=== PATIENT | male | born 1980 | race American Indian/Alaskan Native ===

== ENCOUNTER 2019-01-09 12:45 | Emergency (ER) | payer SELFPAY ==
[2019-01-09 12:57] VITALS: BP 148/92
--- NOTE | 2019-01-09 12:59 | Emergency Department Report ---
Blank Doc - Documentation Documentation: 38-year-old male that presents with right elbow lac s/p fall with right should er, mid-back and elbow pain. Denies any head injuries or neck pain. This initial assessment/diagnostic orders/clinical plan/treatment(s) is/are subject to change based on patient's health status, clinical progression and re- assessment by fellow clinical providers in the ED. Further treatment and workup at subsequent clinical providers discretion. Patient/guardians urged not to elope from the ED as their condition may be serious if not clinically assessed and managed. Initial orders include: 1- Patient sent to [facility] for further evaluation and treatment 2- xrays 3- lac setup
--- NOTE | 2019-01-09 13:34 | XRay Report ---
RIGHT ELBOW 3 VIEWS INDICATION / CLINICAL INFORMATION: Fall with right elbow pain. COMPARISON: None available. FINDINGS: BONES / JOINT(S): No acute fracture or subluxation. There is a small bone island in the distal cristofer l epicondyle laterally. There is no evidence of joint effusion. SOFT TISSUES: No significant abnormality. ADDITIONAL FINDINGS: None. IMPRESSION: No acute abnormality. Signer Name: Christo Kahn MD Signed: 01/09/2019 1:30 PM Workstation Name: [email or web address]
--- NOTE | 2019-01-09 13:35 | XRay Report ---
3 views of the right shoulder INDICATION / CLINICAL INFORMATION: pain s/p fall. COMPARISON: None available. FINDINGS: BONES/JOINT(S): No acute fracture or subluxation. No significant degenerative changes. SOFT TISSUES: No significant abnormality. ADDITIONAL FINDINGS: None. Signer Name: Jerson Tello MD Signed: 01/09/2019 1:30 PM Workstation Name: [email or web address]
--- NOTE | 2019-01-09 13:35 | XRay Report ---
THORACIC SPINE 3 VIEWS INDICATION / CLINICAL INFORMATION: Fall with dorsal back pain. COMPARISON: None available. FINDINGS: BONES / JOINT(S): The vertebral body heights and disc spaces are well-maintained. The pedicles are in tact. There is no evidence of fracture or subluxation. SOFT TISSUES: No significant abnormality. ADDITIONAL FINDINGS: None. IMPRESSION: No acute abnormality. Signer Name: Christo Kahn MD Signed: 01/09/2019 1:31 PM Workstation Name: [id number]
--- NOTE | 2019-01-09 15:47 | Emergency Department Report ---
ED Fall HPI - General Chief Complaint: Fall Stated Complaint: CHEST PAIN/BACK PAIN Time Seen by Provider: 01/09/19 12:58 Source: patient Mode of arrival: Ambulatory - History of Present Illness Initial Comments: This is a 38-year-old -[place] male who presents to the emergency room with generalized body aches status post fall on yesterday. Patient states he fell down a flight of stairs at home yesterday. He reports initially felt dizzy which has now resolved. He is now complaining of right shoulder plain and right upper back pain. Patient reports his entire body feels sore and worse with movement. He denies loss of consciousness, chest pain, palpitations, shortness of breath, bruising, numbness or tingling, change in urinary or bowel pattern, weakness, or paresthesia. MD Complaint: fall Onset/Timin -: days(s) Fall From: down stairs (#) (10) When Fall Occurred: # days SOFTWARE LEAD (1) Fall Witnessed: yes, by family Place Fall Occurred: home Loss of Consciousness: none Prolonged Down Time?: no Symptoms Prior to Fall: none Location: back Location - Extremities: Right: Shoulder Severity: moderate Severity scale (0 -10): 6 Quality: aching Context: tripped/slipped Associated Symptoms: denies - Related Data Previous Rx's Medication Instructions Recorded Last Taken Type Naproxen [Naprosyn] 500 mg PO BID PRN #20 tablet 01/09/19 Unknown Rx methOCARBAMOL [Robaxin TAB] 500 mg PO Q6H PRN #15 tablet 01/09/19 Unknown Rx Allergies Allergy/AdvReac Type Severity Reaction Status Date / Time No Known Allergies Allergy Unverified 01/09/19 12:48 ED Review of Systems ROS: Stated complaint: CHEST PAIN/BACK PAIN Other details as noted in HPI Constitutional: denies: chills, fever Respiratory: denies: cough, shortness of breath, wheezing Cardiovascular: denies: chest pain, palpitations Gastrointestinal: denies: abdominal pain, nausea, diarrhea Musculoskeletal: back pain, arthralgia (right shoulder pain). denies: joint swelling Skin: denies: rash, lesions Neurological: denies: headache, weakness, paresthesias Psychiatric: denies: anxiety, depression ED Past Medical Hx - Past Medical History Previous Medical History?: No - Surgical History Past Surgical History?: No - Social History Smoking Status: Current Every Day Smoker Substance Use Type: None - Medications Home Medications: Home Medications Medication Instructions Recorded Confirmed Last Taken Type Naproxen [Naprosyn] 500 mg PO BID PRN #20 tablet 01/09/19 Unknown Rx methOCARBAMOL [Robaxin TAB] 500 mg PO Q6H PRN #15 tablet 01/09/19 Unknown Rx ED Physical Exam - General Limitations: No Limitations General appearance: alert, in no apparent distress - Neck Neck exam: Present: tenderness (bilateral trapezius, no erythema or swelling), full ROM. Absent: lymphadenopathy - Respiratory Respiratory exam: Present: normal lung sounds bilaterally. Absent: respiratory distress - Cardiovascular Cardiovascular Exam: Present: regular rate, normal rhythm. Absent: systolic murmur, diastolic murmur, rubs, gallop - GI/Abdominal GI/Abdominal exam: Present: soft, normal bowel sounds. Absent: distended, tenderness, guarding, rebound, rigid - Expanded Upper Extremity Exam Right Shoulder Exam: Present: full ROM (pain with FROM). Absent: tenderness, swelling, abrasion, laceration, ecchymosis, deformity, crepidus, dislocation, erythema, tenderness over AC joint Upper Arm exam: Present: normal inspection, full ROM Elbow exam: Present: full ROM, tenderness, abrasion (2 cm abrasion over olecranon, tenderness, no drainage or swelling). Absent: laceration, ecchymosis, deformity, crepidus, dislocation, erythema, effusion, pain w/ pronation/supination, tenderness over radial head Forearm Wrist exam: Present: normal inspection, full ROM Hand Wrist exam: Present: normal inspection, full ROM Neuro motor exam: Present: wrist extension intact, thumb opposition intact, thumb IP flexion intact, thumb adduction intact, fingers 2-5 abduction intact Vascular: Present: normal capillary refill, radial pulse - Back Exam Back exam: Present: full ROM (pain with FROM), paraspinal tenderness (bilateral thoracic paraspinal tenderness, negative SLT). Absent: muscle spasm, vertebral tenderness, rash noted - Neurological Exam Neurological exam: Present: alert, oriented X3, normal gait - Psychiatric Psychiatric exam: Present: normal affect, normal mood - Skin Skin exam: Present: warm, dry, intact, normal color. Absent: rash ED Course Vital Signs 01/09/19 12:56 Temperature 97.4 F L Pulse Rate 71 Respiratory 20 Rate Blood Pressure 148/92 O2 Sat by Pulse 100 Oximetry ED Medical Decision Making - Radiology Data Radiology results: report reviewed THORACIC SPINE 3 VIEWS INDICATION / CLINICAL INFORMATION: Fall with dorsal back pain. COMPARISON: None available. FINDINGS: BONES / JOINT(S): The vertebral body heights and disc spaces are well- maintained. The pedicles are intact. There is no evidence of fracture or subluxation. SOFT TISSUES: No significant abnormality. ADDITIONAL FINDINGS: None. IMPRESSION: No acute abnormality. 3 views of the right shoulder INDICATION / CLINICAL INFORMATION: pain s/p fall. COMPARISON: None available. FINDINGS: BONES/JOINT(S): No acute fracture or subluxation. No significant degenerative changes. SOFT TISSUES: No significant abnormality. ADDITIONAL FINDINGS: None. RIGHT ELBOW 3 VIEWS INDICATION / CLINICAL INFORMATION: Fall with right elbow pain. COMPARISON: None available. FINDINGS: BONES / JOINT(S): No acute fracture or subluxation. There is a small bone island in the distal humeral epicondyle laterally. There is no evidence of joint effusion. SOFT TISSUES: No significant abnormality. ADDITIONAL FINDINGS: None. IMPRESSION: No acute abnormality. - Medical Decision Making Patient was examined by me. Patient is nontoxic appearing and stable. Vitals are normal. Obtained x-rays of thoracic spine, right shoulder, and right elbow all with no acute radiographic findings. There is pain with range of motion to right elbow, right shoulder, and back with full range of motion. This is muscle strain status post fall. Start muscle relaxers and NSAIDs. Patient informed of results and ER plan. Follow up with PCP or return to the ER with worsening symptoms. Patient discharged home in stable condition. Critical care attestation.: If time is entered above; I have spent that time in minutes in the direct care of this critically ill patient, excluding procedure time. ED Disposition Clinical Impression: Muscle strain, Right elbow pain Fall Qualifiers: Encounter type: initial encounter Qualified Code(s): W19.XXXA - Unspecified fall, initial encounter Right shoulder pain Qualifiers: Chronicity: acute Qualified Code(s): M25.511 - Pain in right shoulder Back pain Qualifiers: Back pain location: thoracic back pain Chronicity: acute Back pain laterality: bilateral Qualified Code(s): M54.6 - Pain in thoracic spine Disposition: TO HOME OR SELFCARE Is pt being admited?: No Condition: Stable Instructions: Arthralgia (ED), Core Strengthening Exercises (GEN), Muscle Strain (ED) Additional Instructions: Rest Use ice or heat on affected area for 20 minutes and off for 2 hours. Take pain medication as needed for pain. Don't drive or operate heavy machinery while taking muscle relaxers because they may cause drowsiness. Follow up with Primary Care Provider in 2-3 days. Prescriptions: Naproxen [Naprosyn] 500 mg PO BID PRN #20 tablet PRN Reason: Pain , Severe (7-10) methOCARBAMOL [Robaxin TAB] 500 mg PO Q6H PRN #15 tablet PRN Reason: Muscle Spasm Referrals: [facility] [Outside] - 3-5 Days [facility] [Outside] - 3-5 Days [facility] [Outside] - 3-5 Days Forms: Work/School Release Form(ED) Time of Disposition: 15:57
[2019-01-09] MEDS ORDERED: IBUPROFEN 800 MG TAB PO ONE (16:17)
[2019-01-09] MEDS ORDERED: IBUPROFEN 800 MG TAB ONE (16:20)
== END 2019-01-09 16:21 | disposition home or self-care (01) ==
LOC: ED 12:45
DX: S46.911A Strain of unspecified muscle, fascia and tendon at shoulder and upper arm level, right arm, initial encounter (principal); S29.012A Strain of muscle and tendon of back wall of thorax, initial encounter; F17.200 Nicotine dependence, unspecified, uncomplicated; W01.0XXA Fall on same level from slipping, tripping and stumbling without subsequent striking against object, initial encounter; Y93.89 Activity, other specified; Y92.89 Other specified places as the place of occurrence of the external cause; Y99.8 Other external cause status
CPT/HCPCS: 72070

== ENCOUNTER 2019-04-21 17:33 | Emergency (ER) | payer SELFPAY ==
--- NOTE | 2019-04-21 18:33 | Event Note ---
ED Screening Note Date of service: 04/21/19 Time: 18:32 ED Screening Note: CCC with chest pain, NV yesterday. chills. body aches, sore throat lungs : scattered rhonchi This initial assessment/diagnostic orders/clinical plan/treatment(s) is/are subject to change based on patients health status, clinical progression and re- assessment by fellow clinical providers in the ED. Further treatment and workup at subsequent clinical providers discretion. Patient/guardian urged not to elope from the ED as their condition may be serious if not clinically assessed and managed. Initial orders include: CXR
--- NOTE | 2019-04-21 19:02 | XRay Report ---
CHEST 2 VIEWS INDICATION / CLINICAL INFORMATION: productive cough, rhonchi. COMPARISON: None available. FINDINGS: SUPPORT DEVICES: None. HEART / MEDIASTINUM: No significant abnormality. LUNGS / PLEURA: No significant pulmonary or pleural abnormality. No pneumothorax. ADDITIONAL FINDINGS: No significant additional findings. IMPRESSION: 1. No acute abnormality of the chest. Signer Name: Miguelito Wallace MD Signed: 04/21/2019 6:57 PM Workstation Name: [id number]
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
[2019-04-21] MEDS ORDERED: BENZONATATE 100 MG CAP PO ONE (22:25)
[2019-04-21 22:43] VITALS: BP 115/80
== END 2019-04-21 22:43 | disposition home or self-care (01) ==
LOC: ED 17:33
DX: J20.9 Acute bronchitis, unspecified (principal); Z87.891 Personal history of nicotine dependence; Z79.899 Other long term (current) drug therapy
CPT/HCPCS: 71046; 87400

== ENCOUNTER 2019-05-10 18:56 | Emergency (ER) | payer SELFPAY ==
--- NOTE | 2019-05-10 19:48 | Event Note ---
ED Screening Note Date of service: 05/10/19 Time: 19:45 ED Screening Note: 39 y o male presents with abd pain with vomit and diarrhea x 2 days ate some ham no other unusual This initial assessment/diagnostic orders/clinical plan/treatment(s) is/are subject to change based on patients health status, clinical progression and re- assessment by fellow clinical providers in the ED. Further treatment and workup at subsequent clinical providers discretion. Patient/guardian urged not to elope from the ED as their condition may be serious if not clinically assessed and managed. Initial orders include: cbc,bmp,lipase ua,upt
[2019-05-10 19:49] VITALS: BP 122/88
[2019-05-10 20:09] LABS: Basophils % (Auto) 0.6 % (0.0-1.8); Eosinophils % (Auto) 0.6 % (0.0-4.3); Hematocrit 49.2 % (35.5-45.6); Hemoglobin 16.8 gm/dl (11.8-15.2); Lymphocytes # (Auto) 1.6 K/mm3 (1.2-5.4); Lymphocytes % (Auto) 31.1 % (13.4-35.0); Mean Corpuscular HGB Conc 34 % (32-34); Mean Corpuscular Volume 93 fl (84-94); Monocytes # (Auto) 0.3 K/mm3 (0.0-0.8); Monocytes % (Auto) 6.3 % (0.0-7.3); Platelet Count 202 K/mm3 (140-440)
[2019-05-10 20:23] LABS: Alanine Aminotransferase 13 units/L (7-56); Albumin 3.5 g/dL (3.9-5); BUN/Creatinine Ratio 8; Blood Urea Nitrogen 9 mg/dL (9-20); Calcium 8.6 mg/dL (8.4-10.2); Hemolysis Index 14
[2019-05-10 23:07] LABS: Bilirubin,Urine NEG (Negative); Blood,Urine NEG (Negative); Color,Urine Yellow (Yellow); Mucus,Urine 2+ /HPF; Protein,Urine <15 mg/dL mg/dL (Negative); Urobilinogen,Urine < 2.0 mg/dL (<2.0)
[2019-05-11] MEDS ORDERED: SODIUM CHLORIDE 0.9% 1000 ML 1,000 ML IV ONE (00:20)
[2019-05-11] MEDS ORDERED: FAMOTIDINE 20 MG/2 ML INJ IV ONE (00:20)
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
== END 2019-05-11 00:55 | disposition home or self-care (01) ==
LOC: ED 18:56
DX: K52.9 Noninfective gastroenteritis and colitis, unspecified (principal); Z98.890 Other specified postprocedural states; Z79.899 Other long term (current) drug therapy
CPT/HCPCS: 36415; 80053; 81001; 83690; 85025; 96374; 99283; J7030